=== PATIENT | female | born 1965 | race Two or more races ===

== ENCOUNTER 2022-03-23 08:46 | Inpatient (IN) | payer MEDICAID ==
[~2022-03-23] VITALS: Ht 167.6 cm; Wt 65.3 kg
[2022-03-23] MEDS ORDERED: IV NS 0.9% 1,000 ML BAG IV ONE (09:00)
--- NOTE | 2022-03-23 09:00 | NUR ---
PER EMS, PERSON WHO CALLED 911: [phone]
[2022-03-23] MEDS ORDERED: OLAN5TAB3 PO (09:07)
--- NOTE | 2022-03-23 09:14 | NUR ---
CALLED POISON [phone] MIN OBSERVATION TIME 6 HOURS IF NOT AWAKE AND ALERT THEN 24 HOURS AND ADMISSION PER [facility] YADIR[facility]. GIVE NARCAN. WITH ZYPREXA CAN LEAD TO COMA, LOOK FOR QTC PROLONGATION DO MONITOR AND EKG TACHY LOOK FOR LIVER TOXICITY GET CMP, MAG, INR, AT 1045 CHECK TYL IF > 150 THEN GIVE ACETADOTE
--- NOTE | 2022-03-23 09:20 | NUR ---
COVID SWAB COLLECTED AND SENT TO LAB
--- NOTE | 2022-03-23 09:25 | NUR ---
urine sample collected and sent to lab
[2022-03-23 09:37] LABS: BASOPHILS % (AUTO) 0.6 % (0.0-2.0); EOSINOPHILS % (AUTO) 0.9 % (0.0-6.0); HEMATOCRIT 38 % (33-45); HEMOGLOBIN 12.4 g/dL (11.5-14.8); LYMPHOCYTES # (AUTO) 1.4 K/uL (0.8-4.8); MEAN CORPUSCULAR HGB CONC 33 g/dl (31.0-36.0); MEAN CORPUSCULAR VOLUME 88 fL (82-100); MONOCYTES # (AUTO) 0.5 K/uL (0.1-1.30); NEUTROPHILS # (AUTO) 4.2 K/uL (1.8-8.9); NEUTROPHILS % (AUTO) 68.5 % (43.0-81.0); PLATELET COUNT (AUTO) 218 K/uL (150-450); WHITE BLOOD COUNT (AUTO) 6.1 K/uL (4.3-11.0)
[2022-03-23 09:41] LABS: BILIRUBIN,URINE NEGATIVE (NEGATIVE); COLOR,URINE YELLOW (YELLOW); LEUKOCYTE ESTERASE ,URINE TRACE (NEGATIVE); NITRITE, URINE NEGATIVE (NEGATIVE); PH,URINE 7.5 (5.0-8.0); PROTEIN,URINE NEGATIVE (NEGATIVE); UGLUCOSE NEGATIVE (NEGATIVE); UROBILINOGEN,URINE 0.2 EU/dL (0.2)
--- NOTE | 2022-03-23 09:43 | NUR ---
TIMO GRAY [facility] [phone]
[2022-03-23 09:56] LABS: CALCIUM, SERUM 9.3 mg/dL (8.5-10.1); CARBON DIOXIDE 29 mmol/L (21-32); CHLORIDE 106 mmol/L (98-107); CREATININE 0.9 mg/dL (0.6-1.3); GLUCOSE 106 mg/dL (74-106); POTASSIUM 3.8 mmol/L (3.5-5.1); SODIUM SERUM 143 mmol/L (136-145); UREA NITROGEN, BLOOD 7 mg/dL (7-18)
[2022-03-23 09:58] LABS: MAGNESIUM 2.1 mg/dL (1.8-2.4); PHOSPHORUS 3.9 mg/dL (2.5-4.9)
[2022-03-23 10:01] LABS: ACETAMINOPHEN 18 ug/ml (10-30); ALANINE AMINOTRANSFERASE 34 U/L (12-78); ALBUMIN 4.1 g/dL (3.4-5.0); ALKALINE PHOSPHATASE 77 U/L (46-116); ASPARTATE AMINOTRANSFERASE 27 U/L (15-37); BILIRUBIN,DIRECT 0.1 mg/dL (0.0-0.2); BILIRUBIN,TOTAL 0.3 mg/dL (0.2-1.0); TOTAL PROTEIN, SERUM 7.9 g/dL (6.4-8.2)
[2022-03-23 10:03] LABS: ALCOHOL, BLOOD < 3 mg/dL (0-0)
[2022-03-23 10:10] LABS: BACTERIA,URINE Few /HPF (None Seen); RBC,URINE 0-2 /HPF (0-2); SQUAMOUS EPITHELIAL CELL,UR Rare /HPF (None Seen); WBC,URINE 0-2 /HPF (0-3)
[2022-03-23 12:00] LABS: ALBUMIN 3.7 g/dL (3.4-5.0); BILIRUBIN,TOTAL 0.3 mg/dL (0.2-1.0); CALCIUM, SERUM 9.1 mg/dL (8.5-10.1); CREATININE 0.9 mg/dL (0.6-1.3); POTASSIUM 3.8 mmol/L (3.5-5.1); TOTAL PROTEIN, SERUM 7.3 g/dL (6.4-8.2)
--- NOTE | 2022-03-23 12:55 | NUR ---
TRANSFERRED TO BED 313 IN STABLE CONDITION
--- NOTE | 2022-03-23 13:15 | NUR ---
RN NOTE PATIENT CAME TO UNIT FORM ER VIA GURNEY WITH NO SIGNS OF DISTRESS. REPORT RECEIVED FROM ER NURSE. PATIENT WAS ORIENTED TO ROOM SET UP AND SHOWED PATIENT HOW TO USE CALL LIGHT. V/S TAKEN, STABLE AND RECORDED. SKIN ASSESSMENT DONE, SKIN INTACT. BELONGING CHECKED AND SIGNED. PATIENT AWAKE IN BED RESTING, VERY SLEEPY AND DROWSY A/O X3. NO S/S OF PAIN NOTED AT THIS TIME. ON ROOM AIR, NO DISTRESS OR SHORTNESS OF BREATH NOTED. IV ACCESS RAC #18G INTACT, PATENT AND FLUSHING WELL. FALL AND SAFETY MEASURES IN PLACE, BED ALARM ON, BED IN LOW AND LOCK POSITION, CALL LIGHT AND TABLE WITHIN EASY REACH, SIDE RAILS UP X2. WILL CONTINUE TO MONITOR.
[2022-03-23] MEDS ORDERED: MAG HYDROX/AL HYDROX/SIMETH 30 ML UDC PO PRN (13:30)
[2022-03-23] MEDS ORDERED: ONDANSETRON HCL/PF 4 MG/2 ML VIAL IVP PRN (13:30)
[2022-03-23] MEDS ORDERED: MAGNESIUM HYDROXIDE 30 ML UDC PO PRN (13:30)
[2022-03-23] MEDS ORDERED: Z GUARD REMEDY 4 OZ OINT TP PRN (13:30)
[2022-03-23 14:32] VITALS: BP 133/85
[2022-03-23] MEDS: IV NS 0.9% 1,000 ML IV PRN (14:48)
--- NOTE | 2022-03-23 15:09 | NUR ---
RN NOTE POISON CONTROL CALLED (DORIS), SHE REQUESTED TO PLEASE REPEAT ACETAMINOPHEN LAB, ORDERED WAS PLACED. CHARGE NURSE AWARE.
--- NOTE | 2022-03-23 18:46 | NUR ---
RN CLOSING NOTE PATIENT IN BED RESTING, SLEEPY AND DROWSY A/O X3. NO S/S OF PAIN NOTED AT THIS TIME. ON ROOM AIR, NO DISTRESS OR SHORTNESS OF BREATH NOTED. IV ACCESS RAC #18G INTACT, PATENT AND FLUSHING WELL. FALL AND SAFETY MEASURES IN PLACE, BED ALARM ON, BED IN LOW AND LOCK POSITION, CALL LIGHT AND TABLE WITHIN EASY REACH, SIDE RAILS UP X2. WILL ENDORSE TO FURNITURE ASSOCIATE.
--- NOTE | 2022-03-23 19:40 | NUR ---
TECHNOLOGY SPECIALIST OPENING NOTE RECEIVED PATIENT IN BED, SLEEPY AND DROWSY A/O X3. NO S/S OF PAIN NOTED AT THIS TIME. ON ROOM AIR, TOLERATING WELL, NO DISTRESS OR SHORTNESS OF BREATH NOTED. ON TELEMONITORING CURRENTLY READING 65BPM. IV ACCESS ON RAC #18G INTACT, PATENT AND FLUSHING WELL RUNNING NS AT 75 ML/HR. FALL AND SAFETY MEASURES IN PLACE, BED ALARM ON, BED IN LOWEST AND LOCKED POSITION, CALL LIGHT AND TABLE WITHIN EASY REACH, SIDE RAILS UP X2. SITTER AT BEDSIDE, WILL CONTINUE TO MONITOR THROUGHOUT THE SHIFT.
--- NOTE | 2022-03-23 23:43 | NUR ---
rn Addendum: 03/23/22 at 2347 by MILAGRO HOUSER RN RN NOTE RECEIVED CALL FROM POISON CONTROL NOEMÍ, GAVE AN UPDATE ABOUT ACETAMINOPHEN LEVEL 0.0 FROM 18.0 IN THE MORNING. PT HAS BEEN MORE ALERT SINCE THE START OF SHIFT, REMAINS IN BED WITH SITTER AT THE BEDSIDE. WILL CONT PLAN OF CARE.
[2022-03-23 23:59] VITALS: BP 139/65
[2022-03-24] MEDS: IV NS 0.9% 1,000 ML IV PRN (03:09)
[2022-03-24 03:50] VITALS: BP 135/69
--- NOTE | 2022-03-24 06:34 | NUR ---
MICROSYSTEMS ENGINEER CLOSING NOTE PATIENT SLEEPING IN BED BUT EASILY AROUSABLE TO TOUCH AND VOICE, A/O X3. NO COMPLAINTS OF PAIN AT THIS TIME. ON ROOM AIR, TOLERATING WELL, NO DISTRESS OR SHORTNESS OF BREATHING NOTED. ON TELEMONITORING CURRENTLY READING 60BPM. IV ACCESS ON RAC #18G INTACT AND PATENT RUNNING NS AT 75 ML/HR. FALL AND SAFETY MEASURES IN PLACE, BED ALARM ON, BED IN LOWEST AND LOCKED POSITION, CALL LIGHT AND TABLE WITHIN EASY REACH, SIDE RAILS UP X2. TRANSFERRED TO [facility] WITH SITTER AT BEDSIDE, WILL ENDORSE TO AM SHIFT NURSE.
[2022-03-24 07:16] LABS: BASOPHILS % (AUTO) 0.6 % (0.0-2.0); EOSINOPHILS % (AUTO) 2.7 % (0.0-6.0); HEMATOCRIT 36 % (33-45); HEMOGLOBIN 11.9 g/dL (11.5-14.8); LYMPHOCYTES # (AUTO) 1.6 K/uL (0.8-4.8); MEAN CORPUSCULAR HGB CONC 33 g/dl (31.0-36.0); MEAN CORPUSCULAR VOLUME 89 fL (82-100); MONOCYTES # (AUTO) 0.6 K/uL (0.1-1.30); MONOCYTES % (AUTO) 10.7 % (2.0-12.0); NEUTROPHILS # (AUTO) 3.4 K/uL (1.8-8.9); PLATELET COUNT (AUTO) 204 K/uL (150-450); RED BLOOD CELL COUNT(AUTO) 4.05 MIL/uL (4.0-5.2); WHITE BLOOD COUNT (AUTO) 5.8 K/uL (4.3-11.0)
[2022-03-24 07:24] LABS: CALCIUM, SERUM 9.1 mg/dL (8.5-10.1); CREATININE 0.9 mg/dL (0.6-1.3); MAGNESIUM 2.1 mg/dL (1.8-2.4); PHOSPHORUS 4.6 mg/dL (2.5-4.9); POTASSIUM 3.7 mmol/L (3.5-5.1)
--- NOTE | 2022-03-24 07:25 | NUR ---
FURNITURE SALESPERSON OPENING NOTES RECEIVED PATIENT ASLEEP IN BED, EASILY AROUSABLE TO TACTILE AND VERBAL STIMULI. 1:1 SITTER AT BEDSIDE. A/O X3. NO VERBALIZATION OF SUICIDE AND NO COMPLAINTS OF PAIN AT THIS TIME. ON ROOM AIR, TOLERATING WELL, NO DISTRESS OR SHORTNESS OF BREATHING NOTED. ON TELE-MONITORING CURRENTLY READING SB, HR 59. IV ACCESS ON RAC #18G INTACT WITH IVF OF NS @ 75 ML/HR. SAFETY MEASURES IN PLACE: BED ALARM ON, BED IN LOWEST LOCKED POSITION, CALL LIGHT AND TRAY TABLE WITHIN EASY REACH, SIDE RAILS UP X2. WILL CONTINUE TO MONITOR PT CLOSELY.
[2022-03-24 08:00] VITALS: BP 130/79
[2022-03-24] MEDS ORDERED: LORAZEPAM 1 MG TABLET PO PRN (10:30)
[2022-03-24 16:00] VITALS: BP 142/79
--- NOTE | 2022-03-24 16:59 | NUR ---
RN NOTES RECEIVED CALL FROM RALEIGH VASQUEZ THAT SHE CALLED AND SPOKED TO DR ASHLEY. SHE SAID THAT DR ASHLEY CLEARED PT TO BE D/C'D TO [facility]. CHRISTINA STATED THAT SHE CALLED [facility] AND NO BED AVAILABLE AT THIS TIME. SHE ALSO SAID THAT [facility] WILL CALL US ONCE BED IS AVAILABLE.
--- NOTE | 2022-03-24 17:01 | NUR ---
SS Consult: SS requested for suicide attempt by overdose. The pt. is a 56-year-old / Black female patient who came in for suicide attempt by overdose. Upon SS consult, the pt. is Alert & Oriented x 4 and makes avoidant eye contact. The pt. appears well groomed with depressed mood & flat affect. Pt.s speech and thought process are WNL. Pt. remained calm & cooperative throughout interview. Pt. denies current SI/ HI. Patient stated she attempted suicide by overdosing on her medication because he is tired of having auditory hallucinations with commanding voices that ridicule her and command her to hurt herself. The patient potentially took 60 5mg tablets of olanzapine and 25 500mg tablets of Tylenol per EMR. RALEIGH explored patients mental health Hx. Pt. states she has not received a diagnosis but saw a psychiatrist who prescribed her with the current psych meds. RALEIGH explored pt.s living situation. Patient states she was residing with her daughter, Marta Dominguez [phone]. RALEIGH explored pt.s drug & ETOH use. Pt. denies any drug or alcohol use. RALEIGH explored pt.s support system. Pt. states her mother is her support system. The pt. states he is independent with ADLs and ambulates independently. DC Plan: The pt. is agreeable to DC on a voluntary basis to a psychiatric hospital. RALEIGH spoke with Dr. Vazquez who also recommended referral to [facility] RALEIGH faxed clinicals to [facility] TEL:[phone] fax:[phone] for voluntary psychiatric treatment at [facility] [[address] [place] [address] FAX:[phone]]. RALEIGH spoke to nurse, Ray and nursing sup and notified them that the clinicals are still being reviewed and [facility] will contact Med Surg with acceptance information. RALEIGH provided pt. with the following mental health resources and pt. accepted them: Counseling--Outpatient [address] [place] [address] (Specializes in in-depth psychotherapy for emotional distress: anxiety, depression, interpersonal conflicts, life transitions, childhood abuse) [address] [place] [address] (Assist with solving problem marital difficulties, separation & divorce, aging parents, & grief, chronic & terminal illness) [facility] [address] [place] [address] (Deal with loss & grief, anxiety, marital difficulties) Homebound/Mental Health Services [address] [facility] [address] [place], [place] [id number] (Provide in-home mental services to people who are incapable of leaving their homes) [facility] [address] [facility]. [place], [place] [id number] [facility] [address] [place] [address] PSYCHIATRIC OUTPATIENT SERVICES [facility] and Intensive [facility]patient Program (Managed Care and [place] Only) [address] [facility]. [facility] [address]; [phone] [facility] Partial Hospitalization and Outpatient Program [address] [facility]. [address] [place] [address]; [phone] [facility] [id number] [facility]. [address] [place], [place] [phone] [facility] Partial Hospitalization and Outpatient [id number] [place], [place] ; [phone] ;[phone] [facility] [address] [place] [address] Mental Health Services Lauren Parra [address] [place] [address] Services: Outpatient therapy for children, teens, young adults, adults, older adults, and families; Psychiatric services, medication support [place] Crisis and Hotline Telephone Numbers: 24-Hour service unless stated [place] Mental Health/Crisis Line........[phone] Suicide Prevention Center (24 Hours).......[phone] Suicide Prevention Crisis Center.......[phone] (24 Hours) Alcoholics Anonymous (24 Hours)..........[phone] National Crisis Hotlines: Alcohol and Drug Helpline - Provides referrals to local facilities where adolescents and adults can seek help. Brief intervention. [facility] Helpline National [place] [employer]ally [employer] 8-631-205-HUYEN National Youth Crisis Hotline [facility] Provides free information on specific disorders, referral directory to mental health providers, national directory of local mental health associations (M-F, 9-5 EST) [employer] [place] [employer] Information Line: Provide sinformation and literature on mental illness by disorder-for professionals and general public.
--- NOTE | 2022-03-24 17:03 | NUR ---
DC plan: Nursing may call [facility] TEL:[phone] fax:[phone] for update on status of voluntary admission to[facility] [[facility] [place] [address] FAX:[phone]]. The pt.'s sister, Poly Rodríguez [phone] would like to be notified when pt. is discharged.
--- NOTE | 2022-03-24 18:44 | NUR ---
PAI GOW MANAGER CLOSING NOTES PATIENT IN BED AWAKE AND RESTING AT SEMI-CARDOSO'S POSITION. 1:1 SITTER AT BEDSIDE. A/O X3-4. DENIES S/I AND HI DURING SHIFT. ON ROOM AIR, TOLERATING WELL, NO DISTRESS OR SHORTNESS OF BREATHING NOTED. ON TELE-MONITORING CURRENTLY READING SR, HR 82, NO C/O CARDIAC DISTRESS VOICED. IV ACCESS ON RAC #18G INTACT WITH IVF OF NS @ 75 ML/HR., NO S/S OF INFILTRATION AT SITE NOTED. ALL NEEDS AND CARE ATTENDED WELL. SAFETY MEASURES IN PLACE: BED ALARM ON, BED IN LOWEST LOCKED POSITION, CALL LIGHT AND TRAY TABLE WITHIN EASY REACH, SIDE RAILS UP X2. AWAITING CALL BACK FROM [facility] WHETHER PT WILL BE ACCEPTED TONIGHT. WILL ENDORSE TO INDEPENDENT DRIVER NURSE.
--- NOTE | 2022-03-24 19:08 | NUR ---
RN NOTES INFORMED DR PINA THAT PT WAS ACCEPTED TO [facility] UNDER THE CARE OF DR ASHLEY AND HE IS IN AGREEMENT. D/C ORDER WAS MADE.
--- NOTE | 2022-03-24 19:11 | NUR ---
RN NOTES RECEIVED CALL FROM ISAEL, INTAKE BIG DATA LEAD OF [facility] THAT PT WILL BE PICKED-UP AT 2030.
--- NOTE | 2022-03-24 19:45 | NUR ---
DISCHARGE NOTE PT DISCHARGED AT THIS TIME TO [facility]. PICKED UP BY [facility] WITH HOSPITAL TRANSPORTATION. PT MEDICALLY STABLE AND CLEARED FOR DISCHARGE BY DR PINA. ALL PT CARE, NEEDS, MEDICATIONS, AND TREATMENT ADMINISTERED ANTICIPATED PER ORDER. DISCHARGE INSTRUCTIONS PROVIDED TO PT. PT VERBALIZED UNDERSTANDING. BELONGINGS LIST ACCOUNTED FOR AND SIGNED BY PT. IV ACCESS REMOVED, PRESSURE APPLIED, AND SECURED WITH TAPE. NO SIGNS OF BLEEDING NOTED. PT TRANSPORTED TO [facility]IA WHEELCHAIR WITH [facility]IE MADRIGAL AND [facility] OF TRANSPORTATION. CHARGE NURSE TIESHA ECHAVARRIA. DR ASHLEY WILL CONTINUE CARE AT [facility].
--- NOTE | 2022-03-24 20:01 | NUR ---
RN NOTE REPORT GIVEN TO PITO AT [facility].
[2022-03-24] MEDS ORDERED: ZOLPIDEM TARTRATE 5 MG TABLET PO PRN (22:00)
== END 2022-03-24 19:45 | DRG 817 ==
LOC: ER 08:57 → MED 12:05 → TELE 13:36 → MED 03-24 06:48 → TELE 03-24 07:02
PROVIDERS: ADMIT Internal Medicine; ATTEND Internal Medicine
DX: T43.592A Poisoning by other antipsychotics and neuroleptics, intentional self-harm, initial encounter (principal); G92.8 Other toxic encephalopathy; F33.3 Major depressive disorder, recurrent, severe with psychotic symptoms; Y92.009 Unspecified place in unspecified non-institutional (private) residence as the place of occurrence of the external cause; Z20.822 Contact with and (suspected) exposure to COVID-19
CPT/HCPCS: 36415; 71045-TC; 80048-TC; 80053-TC; 80076-TC; 81001; 82962-TC; 83735-TC; 84100-TC; 85025-TC; 85730-TC; 87081-TC; C9803; G0378; G0480; J7030